=== PATIENT | female | born 1970 | race Caucasian/White ===

== ENCOUNTER → 2021-04-01 01:25 | Outpatient (CLI) | payer BC, SELFPAY ==
[2021-04-01 21:10] LABS: SARS-CoV-2 RNA PCR Negative
== END ==
PROVIDERS: PCP Family Medicine; Visit Provider Nurse Practitioner Family
DX: R68.89 Other general symptoms and signs (principal); Z20.822 Contact with and (suspected) exposure to COVID-19
CPT/HCPCS: C9803; U0003; U0005

== ENCOUNTER 2021-06-29 09:58 | Outpatient (CLI) | payer BC, SELFPAY ==
--- NOTE | ~2021-06-29 | MM_ITS ---
EXAMINATION: MM screening tereso BI w [facility] HISTORY: Screening mammogram TECHNIQUE: Craniocaudal and mediolateral oblique 3-D tomosynthesis images were obtained and synthetic 2-D images were generated. CAD analysis was submitted and interpreted. COMPARISON: 03/09/2019 bilateral screening mammogram 12/22/2017 bilateral diagnostic mammogram 04/15/2017 bilateral diagnostic mammogram BREAST PARENCHYMAL COMPOSITION: The breasts are heterogeneously dense, which may obscure small masses . FINDINGS: Scattered benign calcifications. There is no evidence of suspicious mass, calcification, or architectural distortion to suggest malignancy in either breast. There has been no suspicious interv al change. IMPRESSION: 1. No mammographic evidence of malignancy. 2. Recommend routine screening mammography in one year. BI-RADS Category 2: Benign finding(s). Reviewed, dictated and finalized at location A.
== END 2021-06-29 09:59 | disposition home or self-care (01) ==
LOC: ANHIMG 09:59
PROVIDERS: PCP Family Medicine; Visit Provider Obstetrics & Gynecology
DX: Z12.31 Encounter for screening mammogram for malignant neoplasm of breast (principal)
CPT/HCPCS: 77063; 77067

== ENCOUNTER 2022-08-13 01:59 | Day surgery (SDC) | payer BC, SELFPAY ==
[2022-08-03 14:42] VITALS: BMI 34.4
--- NOTE | 2022-08-03 14:43 | SUR.PREOP ---
Report to the Outpatient Waiting Room, entrance under the green pavilion located off [facility], at time _0630 on date _08/13/22 . Planned Procedure Time: _0830 . Time changes happen often and if your time is changed the preop area will call you the afternoon before. - You and your visitor will be asked to self-screen and do not enter if you have any COVID symptoms. - A mask is optional within the hospital at this time. Patients may have clear liquids (water, carbonated beverages, clear teas, apple juice) until 3 hours prior to surgery with a maximum of 20 ounces. - No food from midnight until time of surgery - Infants may have breast milk until 4 hours before surgery, formula 6 hours prior to surgery. - Children will be allowed to drink immediately following surgery. If applicable, please bring a bottle or sippy cup to assist with drinking. Juice, water, soda, and popsicles are readily available. For infants on formula, please bring formula the day of surgery. Pacifiers are allowed. Take the following medications with a SIP of water the morning of surgery: ___levothyroxine DO NOT STOP ANY OF YOUR OTHER PRESCRIPTION MEDICATIONS PRIOR TO SURGERY ?EXCEPT THE FOLLOWING Medications to discontinue per physician __vitamins and supplements Date to take last dose___08/10/22 Please no make-up, nail indonesian, hairspray, perfume, deodorant, or body powder the day of surgery. No jewelry (including any body piercings) or valuables the day of surgery, leave them at home. Please take a shower or bath the night before, or the morning of, surgery with an antibacterial soap. Wear comfortable, loose fitting clothing. Children are encouraged to wear pajamas. - Jewelry must be removed prior to entering the operating room. Rings and piercings that are not removed may be cut off. - The hospital will not accept responsibility for valuables. - Please leave all valuables, including medications, at home the day of surgery. If you are going home after surgery, a licensed commercial driver must drive you home. - NO public transportation without another adult if you receive anesthesia. - We recommend that an adult stay with you for 24 hours following discharge. - We also recommend that you do not drive, make important decision, drink alcoholic beverages, or take any drugs that were not prescribed by your health care provider for at least 24 hours after your discharge time. For Pediatric surgeries, we recommend two adults accompany the child home. Follow any additional instructions given to you from your surgeon. If you or anyone in your household have experienced Covid symptoms in the past week, please notify your surgeon or the nurse liaison at the phone number below for possible testing. Telephone instructions given to _jovan eisenberg and asked if any additional questions and then verbalized understanding. Patient advised to call surgeon office or pre surgery nurse liaison [phone] if any additional questions.
--- NOTE | 2022-08-10 07:33 | PM.IMHP ---
H&P: HPI History of Present Illness Date/Time: 08/10/22 07:33 Chief Complaint: postmenopausal bleeding Narrative: this 51-year-old female with postmenopausal admitted for hysteroscopy dilatation curettage secondary to postmenopausal bleeding. She there was an ultrasound which showed some increased blood flow inside the uterus. Since she has not had a period in a few years she is admitted for hysteroscopy. Risks and benefits reviewed including but not exclusive of , aspiration pneumonia, bleeding, transfusion, perforation injury to bowel, bladder, ureters, or other internal organs with need for open laparotomy. She received the ACOG handouts entitled hysteroscopy as well as dilatation curettage respectively. She had all questions answered and asked to proceed PMF Family History Family History Mother Hypertension Father Family history of cardiovascular disease Grandparent Cerebrovascular accident Carcinoma of colon Family history of type 2 diabetes mellitus Other Family history of malignant neoplasm of breast Social History Social History Smoking status: Former smoker Additional smoking assessment comments: 6 years smoking cigarettes 1 pack weekly Alcohol intake: current Alcohol use details: rarely Substance use: current Substance use type: marijuana Other substance usage details: smoking once a month Living arrangements: with family Spiritual care concerns: No Meds Home Medications and Allergies Home Medications Medication Instructions Recorded Confirmed Type Lactobacillus acidophilus and 1 cap PO DAILY 08/03/22 08/03/22 History rhamnosus 15 billion cell capsule (Probiotic) ascorbic acid (vitamin C) 250 mg 250 mg PO DAILY 08/03/22 08/03/22 History tablet (Vitamin C) ashwagandha extract 120 mg capsule 120 mg PO DAILY 08/03/22 08/03/22 History aspirin 81 mg capsule 81 mg PO DAILY 08/03/22 08/03/22 History cholecalciferol (vitamin D3) 125 125 mcg PO DAILY 08/03/22 08/03/22 History mcg (5,000 unit) tablet (Vitamin D3) ferrous sulfate 325 mg (65 mg 325 mg PO DAILY 08/03/22 08/03/22 History iron) tablet (FeroSul) levothyroxine 50 mcg tablet 50 mcg PO DAILY 08/03/22 08/03/22 History (Synthroid) lisinopril 40 mg tablet 40 mg PO DAILY 08/03/22 08/03/22 History magnesium 500 mg tablet 15 mg PO DAILY 08/03/22 08/03/22 History medroxyprogesterone 10 mg tablet 10 mg PO DAILY 08/03/22 08/03/22 History metoprolol succinate 100 mg 100 mg PO HS 08/03/22 08/03/22 History tablet,extended release 24 hr multivitamin 1 cap PO DAILY 08/03/22 08/03/22 History omega 3-sac-new-fish oil 1,000 mg 1 cap PO DAILY 08/03/22 08/03/22 History (120 mg-180 mg) capsule (Fish Oil) rosuvastatin 20 mg tablet 20 mg PO DAILY 08/03/22 08/03/22 History tumeric 100 mg-tammie 150 mg-olive 1 cap PO DAILY 08/03/22 08/03/22 History 50 mg-oreg 150 mg-caprylate capsule vitamin B complex 1 cap PO DAILY 08/03/22 08/03/22 History vitamin B12 0.5 mg-folic acid 1 mg 1 tablet PO DAILY 08/03/22 08/03/22 History tablet Allergies Allergy/AdvReac Type Severity Reaction Status Date / Time Sulfa (Sulfonamide Allergy Mild Rash Verified 08/03/22 14:10 Antibiotics) Exam Const: General: cooperative, healthy appearing, comfortable and overweight Orientation/consciousness: oriented to person, oriented to place and oriented to time HENMT: Head: normal to inspection Resp: Effort & Inspection: normal respiratory effort Cardio: Rate: regular rate Rhythm: regular rhythm Heart sounds: S1 normal heart sound present and S2 normal heart sound present GI: Inspection: normal to inspection Auscultation: normal bowel sounds : External Female Exam: normal external appearance Speculum Exam - Vagina: normal appearance of the vagina and vaginal bleeding Speculum Exam - Cervix: normal
--- NOTE | 2022-08-13 06:00 | WPDHPUPDATE1 ---
History and Physical Update Update Date/Time: 08/13/22 06:00 History and Physical has been reviewed, including an updated exam of the patient. There are NO changes in the patient's condition. Risks, benefits, and alternatives have been discussed and questions answered. Patient agrees to proceed with procedure.
[2022-08-13 06:36] VITALS: BP 167/93; PULSE 72; RESP 20; TEMP 36.6; O2SAT 98
[2022-08-13] MEDS: ACETAMINOPHEN 500 MG TABLET 1000 MG PO (06:58)
[2022-08-13] MEDS: LACTATED RINGERS 1,000 ML 30 ML IV CONT (07:05)
[2022-08-13 07:22] LABS: Hematocrit 40.7 % (37.0-47.0); Hemoglobin 13.5 g/dL (12.0-15.0)
--- NOTE | 2022-08-13 07:46 | WPDANESEPPF ---
Anes - Initial Pre Proc Eval Procedure: Operation Date: 08/13/22 08:30 Proposed Procedures p Hysteroscopy, Dilation and Curettage - Hector Inman MD Date/Time: 08/13/22 07:46 Surgeon: Hector Inman MD Pre Op Diagnosis: irreg bleeding Patient Data Age: 51 Gender: F Height: 1.63 m Weight: 90.9 kg Allergies Allergy/AdvReac Type Severity Reaction Status Date / Time Sulfa (Sulfonamide AdvReac Mild Rash Verified 08/13/22 06:56 Antibiotics) Home Medications Medication Instructions Recorded Confirmed Type Lactobacillus acidophilus and 1 cap PO DAILY 08/03/22 08/03/22 History rhamnosus 15 billion cell capsule (Probiotic) ascorbic acid (vitamin C) 250 mg 250 mg PO DAILY 08/03/22 08/03/22 History tablet (Vitamin C) ashwagandha extract 120 mg capsule 120 mg PO DAILY 08/03/22 08/03/22 History aspirin 81 mg capsule 81 mg PO DAILY 08/03/22 08/13/22 History cholecalciferol (vitamin D3) 125 125 mcg PO DAILY 08/03/22 08/03/22 History mcg (5,000 unit) tablet (Vitamin D3) ferrous sulfate 325 mg (65 mg 325 mg PO DAILY 08/03/22 08/03/22 History iron) tablet (FeroSul) levothyroxine 50 mcg tablet 50 mcg PO DAILY 08/03/22 08/13/22 History (Synthroid) lisinopril 40 mg tablet 40 mg PO DAILY 08/03/22 08/13/22 History magnesium 500 mg tablet 15 mg PO DAILY 08/03/22 08/03/22 History medroxyprogesterone 10 mg tablet 10 mg PO DAILY 08/03/22 08/03/22 History metoprolol succinate 100 mg 100 mg PO HS 08/03/22 08/13/22 History tablet,extended release 24 hr multivitamin 1 cap PO DAILY 08/03/22 08/03/22 History omega 2-yst-cgo-fish oil 1,000 mg 1 cap PO DAILY 08/03/22 08/03/22 History (120 mg-180 mg) capsule (Fish Oil) rosuvastatin 20 mg tablet 20 mg PO DAILY 08/03/22 08/13/22 History tumeric 100 mg-tammie 150 mg-olive 1 cap PO DAILY 08/03/22 08/03/22 History 50 mg-oreg 150 mg-caprylate capsule vitamin B complex 1 cap PO DAILY 08/03/22 08/03/22 History vitamin B12 0.5 mg-folic acid 1 mg 1 tablet PO DAILY 08/03/22 08/03/22 History tablet hydrocodone 5 mg-acetaminophen 325 1 tablet PO Q4H PRN pain #20 tabs 08/13/22 Rx mg tablet Laboratory Tests 08/13/22 07:04 Hgb 13.5 g/dL (12.0-15.0) Hct 40.7 % (37.0-47.0) Patient hx anesthesia problems: none Family hx anesthesia problems: none Results Review: All pre-operative results and documents have been reviewed as part of the pre-operative evaluation. [facility] Family History Family History Mother Hypertension Father Family history of cardiovascular disease Grandparent Cerebrovascular accident Carcinoma of colon Family history of type 2 diabetes mellitus Other Family history of malignant neoplasm of breast Social History Social History Smoking status: Former smoker Additional smoking assessment comments: 6 years smoking cigarettes 1 pack weekly Alcohol intake: current Alcohol use details: rarely Substance use: current Substance use type: marijuana Other substance usage details: smoking once a month Living arrangements: with family Spiritual care concerns: No Anes - Eval Final PreProcedure Day of Procedure 08/13/22 07:46 Patient weight: obese Heart: regular rate and rhythm Lungs: clear to auscultation Airway: Mallampati scale class III Neurological: alert and oriented Last oral intake: >/= 8 hours ASA classification: III Emergent: no Anesthetic plan: proceed Anesthesia type and monitoring: general GIVS and standard monitoring Results Review: All pre-operative results and documents have been reviewed as part of the pre-operative evaluation. Informed Consent: The patient's anesthetic plan and its attendant risks and benefits were discussed with the patient/family/POA. Questions were solicited and answers provided to the satisfaction of the patient/family/
--- NOTE | 2022-08-13 08:57 | W.PM.PROC2 ---
Procedure Note - Detailed Date of Procedure 08/13/22 Pre-op Diagnosis irreg bleeding Post-op Diagnosis Same Procedure Performed Hysteroscopy / dilatation and curettage Surgeon Hector Inman MD Anesthesia MAC and Local Indications is a 51 old female with postmenopausal bleeding Findings normal-appearing endometrial lining with very benign appearance. Each fallopian tube os appeared within limits Description of Procedure patient was prepped draped in the normal sterile fashion placed in the dorsal lithotomy excellent IV sedation weighted speculum placed in posterior fornix vagina. Anterior lip of the cervix grasped with single-tooth tenaculum. 2.5cc 1% xylocaine anesthesia placed at 2, 4, 8, 10 cervix. Uterus sounded to 8cm. Serial dilatation with fragmented dilators performed followed by the IV the hysteroscope system. No abnormalities are seen photo documentation undertaken. Uterus scraped over the entire 360? removing very minimal amount of tissue. The instruments removed the patient was awakened went to recovery in satisfactory condition. All sponge, needle, instrument counts were correct. There were no immediate complications Estimated Blood Loss 5 Drains No Packing No Pathology Yes Complications No immediate complications Condition Stable Disposition PACU
[2022-08-13] MEDS: LIDOCAINE HCL 1% LOCAL INJ 20 ML VIAL 10 ML INFILTRATE (09:00)
[2022-08-13] MEDS: KETOROLAC 30 MG/ML VIAL (*BKC) IV PUSH (09:00)
[2022-08-13 09:05] VITALS: BP 137/83; PULSE 69; RESP 16; O2SAT 100
[2022-08-13 09:35] VITALS: BP 147/93; PULSE 61; RESP 12
== END 2022-08-13 09:59 | disposition home or self-care (01) ==
PROVIDERS: PCP Family Medicine; Visit Provider Obstetrics & Gynecology
PROC: 0U5B8ZZ Destruction of Endometrium, Via Natural or Artificial Opening Endoscopic (ICD-10-PCS; CPT 58563; principal; 2022-08-13 08:30)
DX: N95.0 Postmenopausal bleeding (principal); Z79.82 Long term (current) use of aspirin; Z87.891 Personal history of nicotine dependence; E66.9 Obesity, unspecified; Z68.35 Body mass index [BMI] 35.0-35.9, adult
CPT/HCPCS: 58558; 36415; 85014; 85018; 88305; A9270; J1885; J2250; J2405; J2704; J3010; J7120

== ENCOUNTER 2022-11-26 01:10 | Day surgery (SDC) | payer BC, SELFPAY ==
[2022-11-16 11:43] VITALS: BMI 33.8
--- NOTE | 2022-11-26 07:56 | WPDANESEPPF ---
Anes - Initial Pre Proc Eval Procedure: Operation Date: 11/26/22 09:30 Proposed Procedures p Screening Colonoscopy - Deven Nicole MD Date/Time: 11/26/22 07:56 Surgeon: Deven Nicole MD Pre Op Diagnosis: neoplasm screening Patient Data Age: 52 Gender: F Height: 1.63 m Weight: 89.5 kg Allergies Allergy/AdvReac Type Severity Reaction Status Date / Time Sulfa (Sulfonamide AdvReac Mild Rash Verified 11/26/22 08:09 Antibiotics) Home Medications Medication Instructions Recorded Confirmed Type Lactobacillus acidophilus and 1 cap PO DAILY 08/03/22 11/16/22 History rhamnosus 15 billion cell capsule (Probiotic) ascorbic acid (vitamin C) 250 mg 250 mg PO DAILY 08/03/22 11/16/22 History tablet (Vitamin C) ashwagandha extract 120 mg capsule 120 mg PO DAILY 08/03/22 11/16/22 History aspirin 81 mg capsule 81 mg PO DAILY 08/03/22 11/16/22 History cholecalciferol (vitamin D3) 125 125 mcg PO DAILY 08/03/22 11/16/22 History mcg (5,000 unit) tablet (Vitamin D3) levothyroxine 50 mcg tablet 50 mcg PO DAILY 08/03/22 11/26/22 History (Synthroid) lisinopril 40 mg tablet 40 mg PO DAILY 08/03/22 11/16/22 History magnesium 500 mg tablet 15 mg PO DAILY 08/03/22 11/16/22 History metoprolol succinate 100 mg 100 mg PO HS 08/03/22 11/16/22 History tablet,extended release 24 hr multivitamin 1 cap PO DAILY 08/03/22 11/16/22 History omega 8-uml-xoh-fish oil 1,000 mg 1 cap PO DAILY 08/03/22 11/16/22 History (120 mg-180 mg) capsule (Fish Oil) rosuvastatin 20 mg tablet 20 mg PO DAILY 08/03/22 11/16/22 History tumeric 100 mg-tammie 150 mg-olive 1 cap PO DAILY 08/03/22 11/16/22 History 50 mg-oreg 150 mg-caprylate capsule vitamin B complex 1 cap PO DAILY 08/03/22 11/16/22 History vitamin B12 0.5 mg-folic acid 1 mg 1 tablet PO DAILY 08/03/22 11/16/22 History tablet Patient hx anesthesia problems: none Family hx anesthesia problems: none Results Review: All pre-operative results and documents have been reviewed as part of the pre-operative evaluation. [facility] Past Medical History Medical History (Updated 11/26/22 @ 07:57 by Santosh Gonzalez DO) Hyperlipidemia Hypertension Hypothyroidism SVT (supraventricular tachycardia) Family History Family History Mother Hypertension Father Family history of cardiovascular disease Grandparent Cerebrovascular accident Carcinoma of colon Family history of type 2 diabetes mellitus Other Family history of malignant neoplasm of breast Social History Social History Smoking status: Former smoker Tobacco type: cigarettes Additional smoking assessment comments: 6 years smoking cigarettes 1 pack weekly Alcohol intake: current Alcohol use details: 1 drink monthly Substance use: current Substance use type: marijuana Other substance usage details: smoking once a month Living arrangements: with family Spiritual care concerns: No Anes - Eval Final PreProcedure Day of Procedure 11/26/22 07:56 Patient weight: obese Heart: regular rate and rhythm Lungs: clear to auscultation Airway: Mallampati scale class II Neurological: alert and oriented Last oral intake: >/= 8 hours ASA classification: III Emergent: no Anesthetic plan: proceed Anesthesia type and monitoring: general GIVS and standard monitoring Results Review: All pre-operative results and documents have been reviewed as part of the pre-operative evaluation. Informed Consent: The patient's anesthetic plan and its attendant risks and benefits were discussed with the patient/family/POA. Questions were solicited and answers provided to the satisfaction of the patient/family/POA.
[2022-11-26 08:10] VITALS: BP 160/94; PULSE 84; RESP 18; TEMP 36.1; O2SAT 99
[2022-11-26] MEDS: LACTATED RINGERS 1,000 ML 150 ML IV CONT (08:25)
--- NOTE | 2022-11-26 09:15 | PM.HPGS ---
History of Present Illness History of Present Illness Consent: Risks, benefits, and alternatives have been discussed and questions answered. Patient agrees to proceed with procedure. Chief complaint: neoplasm screening Narrative: Erika Stallings is a 52 year old female here for first screening colonoscopy Review of Systems Constitutional: Constitutional: Denies headache(s) and Denies weakness Eyes: Eyes: Denies blurry vision ENT: Reports Normal hearing present, Denies headache(s) and Denies neck pain Cardiovascular: Cardiovascular: Denies chest pain and Denies dyspnea Respiratory: Respiratory: Denies dyspnea Gastrointestinal: Gastrointestinal: Reports no additional gastrointestinal complaints Genitourinary: Genitourinary: Denies dysuria Musculoskeletal: Musculoskeletal: Denies neck pain Integumentary/Breasts: Skin/Breast: Denies dry skin Neurologic: Reports Normal hearing present, Denies headache(s) and Denies weakness Psychiatric: Psychiatric: Denies anxiety Endocrine: Endocrine: Denies change in body appearance Hematologic/Lymphatic: Hematologic/Lymphatic: Denies easy bleeding Allergic/Immunologic: Allergic/Immunologic: Denies urticaria PMF Past Medical History Medical History (Updated 11/26/22 @ 09:16 by Deven Nicole MD) Colon cancer screening Hyperlipidemia Hypertension Hypothyroidism SVT (supraventricular tachycardia) Family History Family History Mother Hypertension Father Family history of cardiovascular disease Grandparent Cerebrovascular accident Carcinoma of colon Family history of type 2 diabetes mellitus Other Family history of malignant neoplasm of breast Social History Social History Smoking status: Former smoker Tobacco type: cigarettes Additional smoking assessment comments: 6 years smoking cigarettes 1 pack weekly Alcohol intake: current Alcohol use details: 1 drink monthly Substance use: current Substance use type: marijuana Other substance usage details: smoking once a month Living arrangements: with family Spiritual care concerns: No Meds Home Medications and Allergies Home Medications Medication Instructions Recorded Confirmed Type Lactobacillus acidophilus and 1 cap PO DAILY 08/03/22 11/16/22 History rhamnosus 15 billion cell capsule (Probiotic) ascorbic acid (vitamin C) 250 mg 250 mg PO DAILY 08/03/22 11/16/22 History tablet (Vitamin C) ashwagandha extract 120 mg capsule 120 mg PO DAILY 08/03/22 11/16/22 History aspirin 81 mg capsule 81 mg PO DAILY 08/03/22 11/16/22 History cholecalciferol (vitamin D3) 125 125 mcg PO DAILY 08/03/22 11/16/22 History mcg (5,000 unit) tablet (Vitamin D3) levothyroxine 50 mcg tablet 50 mcg PO DAILY 08/03/22 11/26/22 History (Synthroid) lisinopril 40 mg tablet 40 mg PO DAILY 08/03/22 11/16/22 History magnesium 500 mg tablet 15 mg PO DAILY 08/03/22 11/16/22 History metoprolol succinate 100 mg 100 mg PO HS 08/03/22 11/16/22 History tablet,extended release 24 hr multivitamin 1 cap PO DAILY 08/03/22 11/16/22 History omega 1-lkt-rrw-fish oil 1,000 mg 1 cap PO DAILY 08/03/22 11/16/22 History (120 mg-180 mg) capsule (Fish Oil) rosuvastatin 20 mg tablet 20 mg PO DAILY 08/03/22 11/16/22 History tumeric 100 mg-tammie 150 mg-olive 1 cap PO DAILY 08/03/22 11/16/22 History 50 mg-oreg 150 mg-caprylate capsule vitamin B complex 1 cap PO DAILY 08/03/22 11/16/22 History vitamin B12 0.5 mg-folic acid 1 mg 1 tablet PO DAILY 08/03/22 11/16/22 History tablet Allergies Allergy/AdvReac Type Severity Reaction Status Date / Time Sulfa (Sulfonamide AdvReac Mild Rash Verified 11/26/22 08:09 Antibiotics) Vital Signs Vital Signs - 24 hr 11/26/22 08:10 Temperature 97 F L Pulse Rate 84 Respiratory Rate 18 Blood Pressure 160/94 H Pulse Oximetry
[2022-11-26 09:32] VITALS: BP 115/83; PULSE 78; RESP 18; O2SAT 98
[2022-11-26 09:42] VITALS: BP 116/80; PULSE 73; RESP 16; O2SAT 97
[2022-11-26 09:52] VITALS: BP 142/91; PULSE 68; RESP 16; O2SAT 99
== END 2022-11-26 09:57 | disposition home or self-care (01) ==
PROVIDERS: PCP Family Medicine; Visit Provider Internal Medicine Gastroenterology
PROC: 0DJD8ZZ Inspection of Lower Intestinal Tract, Via Natural or Artificial Opening Endoscopic (ICD-10-PCS; CPT 45378; principal; 2022-11-26 09:30)
DX: Z12.11 Encounter for screening for malignant neoplasm of colon (principal); K57.30 Diverticulosis of large intestine without perforation or abscess without bleeding; Z80.0 Family history of malignant neoplasm of digestive organs; I10 Essential (primary) hypertension; E78.5 Hyperlipidemia, unspecified; E03.9 Hypothyroidism, unspecified; I47.1 Supraventricular tachycardia; Z79.82 Long term (current) use of aspirin; Z87.891 Personal history of nicotine dependence; E66.9 Obesity, unspecified; Z68.33 Body mass index [BMI] 33.0-33.9, adult
CPT/HCPCS: 45378; J2704; J7120